=== PATIENT | female | born 1990 | race Two or more races ===

== ENCOUNTER 2017-05-10 04:41 | Emergency (ER) | payer SELFPAY ==
[2017-05-10 04:48] VITALS: TEMP 97.7; O2SAT 98
[2017-05-10 05:27] LABS: % IMMATURE GRANULYOCYTES 0.3 % (0.0-1.1); ABSOLUTE IMMATURE GRANULOCYTES 0.02 10^3/uL (0.00-0.10); ADD DIFF? NO; ADD MORPH? NO; ADD SCAN? NO; ATYPICAL LYMPHOCYTE FLAG 10 (0-99); FRAGMENT RBC FLAG 0 (0-99); HEMATOCRIT 40.9 % (38.0-47.0); HEMOGLOBIN 13.7 g/dL (12.6-16.3); LEFT SHIFT FLG 0 (0-99); LIPEMIA HEMOLYSIS FLAG 80 (0-99); MEAN CELL HEMOGLOBIN 30.9 pg (27.9-34.1); MEAN CELL HEMOGLOBIN CONCENTR. 33.5 g/dL (32.4-36.7); MEAN CELL VOLUME 92.1 fL (81.5-99.8); MEAN PLATELET VOLUME 11.6 fL (8.7-11.7); PLATELET CLUMPS FLAG 0 (0-99); PLATELET COUNT 193 10^3/uL (150-400); RED BLOOD CELL COUNT 4.44 10^6/uL (4.18-5.33); RED CELL DISTRIBUTION WIDTH 13.4 % (11.5-15.2)
[2017-05-10 05:38] LABS: ANION GAP 11 mEq/L (8-16); CALCIUM 9.1 mg/dL (8.5-10.4); CARBON DIOXIDE 22 mEq/l (22-31); CHLORIDE 105 mEq/L (97-110); CREATININE 0.9 mg/dL (0.6-1.0); GLOMERULAR FILTRATION RATE > 60; GLUCOSE 82 mg/dL (70-100); POTASSIUM 3.7 mEq/L (3.5-5.2); SODIUM 138 mEq/L (134-144)
[2017-05-10 05:50] LABS: TROPONIN I < 0.012 ng/mL (0.000-0.034)
[2017-05-10] MEDS ORDERED: MAG HYDROX/AL HYDROX/SIMETH 30 ML UDCUP PO ONE (06:21)
--- NOTE | 2017-05-10 06:22 | EDPHY ---
H & P Stated Complaint: chest pain since 1030 pm Time Seen by Provider: 05/10/17 05:50 HPI/ROS: HPI The patient presents with chest pain which began at 10:30 p.m. tonight while she was trying to fall asleep. The pain started slowly and is at her mid chest and also on the right side, it is now mostly improved. It is sharp in nature. She has no prior history of similar. She does not have any shortness of breath , nausea, vomiting, dizziness or diaphoresis. She did eat at 2 tacos before going to bed.. REVIEW OF SYSTEMS Constitutional: No fever, no chills. Eyes: No discharge. ENT: No sore throat. Cardiovascular: No chest pain, no palpitations. Respiratory: No cough, no shortness of breath. Gastrointestinal: No abdominal pain, no vomiting. Genitourinary: No hematuria. Musculoskeletal: No back pain. Skin: No rashes. Neurological: No headache. PMHx: Healthy Soc Hx: Lives at home with her kids, no smoking FHx: Mother with valvular heart disease PHYSICAL General Appearance: Alert, no distress Eyes: Pupils equal and round no pallor or injection ENT, Mouth: Mucous membranes moist Respiratory: There are no retractions, lungs are clear to auscultation Cardiovascular: Regular rate and rhythm Gastrointestinal: Abdomen is soft and non-tender, no masses, bowel sounds normal Neurological: A&O, moves all extremities Skin: Warm and dry, no rashes Musculoskeletal: Neck is supple non tender Extremities: symmetrical, full range of motion Psychiatric: Patient is oriented X 3, there is no agitation Source: Patient Exam Limitations: No limitations - Personal History LMP (Females 10-55): 15-21 Days Ago Current Tetanus/Diphtheria Vaccine: Yes Current Tetanus Diphtheria and Acellular Pertussis (TDAP): Yes - Medical/Surgical History Hx Asthma: No Hx Chronic Respiratory Disease: No Hx Diabetes: No Hx Cardiac Disease: No Hx Renal Disease: No Hx Cirrhosis: No Hx Alcoholism: No Hx HIV/AIDS: No Hx Splenectomy or Spleen Trauma: No Other PMH: pmh: denies. psh: denies - Social History Smoking Status: Never smoked Constitutional: Initial Vital Signs Temperature (C) 36.5 C 05/10/17 04:44 Heart Rate 70 05/10/17 04:44 Respiratory Rate 19 05/10/17 04:44 Blood Pressure 106/70 05/10/17 04:44 O2 Sat (%) 98 05/10/17 04:44 O2 Delivery Mode Room Air Allergies/Adverse Reactions: No Known Allergies Allergy (Unverified 01/03/15 22:21) Home Medications: Medication Instructions Recorded Famotidine [Pepcid 20 MG (*)] 20 mg PO BID #30 tab 05/10/17 Medical Decision Making - Diagnostics EKG Interpretation: EKG: Complete interpretation has been separately recorded in the [facility] archive. Summary impression: Normal sinus rhythm Imaging Results: Chest x-ray two view shows no cardiomegaly, no effusion, no pneumothorax, interpreted by me, radiology interpretation is pending. Imaging: I viewed and interpreted images myself Differential Diagnosis: This is a 26-year-old healthy female who presents with several hours of diffuse to chest pain which occurred while lying in bed.. On exam, she is well- appearing with no chest wall tenderness and normal vital signs. Differential diagnosis includes gastritis, GERD, anxiety, costochondritis, less likely ACS given young age and no risk factors, less likely PE given perc negative. In the emergency department, basic labs were checked and were all unremarkable. EKG and chest x-ray were also normal. Patient was given Maalox with improvement in her symptoms. I will discharge her with a course of famotidine and follow up at [facility] where her primary care doctor is. - Data Points Laboratory Results: Laboratory Results 05/10/17 05:18 05/10/17 05:18 Medications Given: Discontinued Medications Al Hydroxide/Mg Hydroxide (Maalox Susp) 30 ml PO EDNOW ONE Stop: 05/10/17 06:22 Last Admin: 05/10/17 06:50 Dose: 30 ml Departure - Departure Disposition: Home, Routine, Self-Care Clinical Impression: Chest pain Condition: Good Instructions: Chest Pain (ED), Diet for Stomach Ulcers and Gastritis (ED), Gastroesophageal Reflux Disease (ED) Referrals: [facility] [Other] - As per Instructions Prescriptions: Famotidine [Pepcid 20 MG (*)] 20 mg PO BID #30 tab
[2017-05-10 06:59] VITALS: BP 106/69; PULSE 67; RESP 16
--- NOTE | 2017-05-11 11:08 | CPEKG ---
Heart Rate: 73 RR Interval: 822 P-R Interval: 184 QRSD Interval: 76 QT Interval: 364 QTC Interval: 401 P Chuckey: 53 QRS Chuckey: 18 T Wave Chuckey: 32 EKG Severity - NORMAL ECG - EKG Impression: SINUS RHYTHM Electronically Signed By: Nanci Carter 12-May-2017 07:24:02
== END 2017-05-10 07:03 | disposition home or self-care (01) ==
DX: R07.9 Chest pain, unspecified (principal)

== ENCOUNTER 2018-06-26 23:24 | Emergency (ER) | payer SELFPAY ==
--- NOTE | 2018-06-26 23:56 | EDPHY ---
H & P Stated Complaint: CP Time Seen by Provider: 06/26/18 23:49 HPI/ROS: CHIEF COMPLAINT: Chest pain HISTORY OF PRESENT ILLNESS: The patient is a 27-year-old female who complains of intermittent mid chest pain for the last week. No weakness or numbness. No shortness of breath. She describes it as sharp. It does not hurt worse with movement or palpation. Does not hurt worse with deep inspiration. No travel recently. She does not smoke or take control pills. She denies risk of . She has had symptoms like this before and has been evaluated with negative workup. She thought initially that maybe it was something she ate and she tried to drink water but this did not help. She denies epigastric or abdominal pain. The pain does radiate to her back. No lightheadedness or dizziness. No tearing or ripping sensation. Severity: Moderate Modifying factors: None REVIEW OF SYSTEMS: Constitutional: denies: chills, fever, recent illness, recent injury EENTM: denies: blurred vision, double vision, nose congestion Respiratory: denies: cough, shortness of breath Cardiac: See HPI Gastrointestinal/Abdominal: denies: abdominal pain, diarrhea, nausea, vomiting, blood streaked stools Genitourinary: denies: dysuria, frequency, hematuria, pain Musculoskeletal: denies: joint pain, muscle pain Skin: denies: lesions, rash, jaundice, bruising Neurological: denies: headache, numbness, paresthesia, tingling, dizziness, weakness Hematologic/Lymphatic: denies: blood clots, easy bleeding, easy bruising Immunologic/allergic: denies: HIV/AIDS, transplant 10 systems reviewed and negative except as noted EXAM: GENERAL: Well-appearing, obese and in no acute distress. HEAD: Atraumatic, normocephalic. EYES: Pupils equal round and reactive to light, extraocular movements intact, sclera anicteric, conjunctiva are normal. ENT: TMs normal, nares patent, oropharynx clear without exudates. Moist mucous membranes. NECK: Normal range of motion, supple without lymphadenopathy or JVD. LUNGS: Breath sounds clear to auscultation bilaterally and equal. No wheezes rales or rhonchi. HEART: Regular rate and rhythm without murmurs, rubs or gallops. ABDOMEN: Soft, nontender, normoactive bowel sounds. No guarding, no rebound. No masses appreciated. BACK: No CVA tenderness, no spinal tenderness, step-offs or deformities EXTREMITIES: Normal range of motion, no pitting or edema. No clubbing or cyanosis. NEUROLOGICAL: Cranial nerves II through XII grossly intact. Normal speech, normal gait. 5/5 strength, normal movement in all extremities, normal sensation , normal reflexes PSYCH: Normal mood, normal affect. SKIN: Warm, dry, normal turgor, no visible rashes or lesions. Source: Patient, Old records Exam Limitations: No limitations - Personal History LMP (Females 10-55): 15-21 Days Ago Current Tetanus/Diphtheria Vaccine: Unsure Current Tetanus Diphtheria and Acellular Pertussis (TDAP): Unsure - Medical/Surgical History Hx Asthma: No Hx Chronic Respiratory Disease: No Hx Diabetes: No Hx Cardiac Disease: No Hx Renal Disease: No Hx Cirrhosis: No Hx Alcoholism: No Hx HIV/AIDS: No Hx Splenectomy or Spleen Trauma: No Other PMH: pmh: denies. psh: denies - Family History Significant Family History: No pertinent family hx - Social History Smoking Status: Never smoked Alcohol Use: Sober Drug Use: None Constitutional: Initial Vital Signs Temperature (C) 36.5 C 06/26/18 23:26 Heart Rate 80 06/26/18 23:26 Respiratory Rate 16 06/26/18 23:26 Blood Pressure 120/76 06/26/18 23:26 O2 Sat (%) 98 06/26/18 23:26 O2 Delivery Mode Room Air Allergies/Adverse Reactions: No Known Allergies Allergy (Unverified 01/03/15 22:21) Home Medications: Medication Instructions Recorded Famotidine [Pepcid 20 MG (*)] 20 mg PO BID #30 tab 05/10/17 Famotidine [Pepcid] 40 mg PO HS #30 tablet 06/27/18 Medical Decision Making - Diagnostics EKG Interpretation: An EKG obtained and was read and documented in trace view. Please see trace view for full reading and report. Sinus rhythm, no acute ischemic changes Imaging: I viewed and interpreted images myself (No acute disease) ED Course/Re-evaluation: 1:00 a.m. the patient is doing well. She is asymptomatic. We discussed her test results which are reassuring. She declines further workup or testing. I will start her on Pepcid and advised her to follow up with GI as well as Cardiology. She understands and agrees with this plan. We also discussed indications for returning to the emergency department. Her heart score 0. 1:15 a.m. Patient is asking for Pepcid. She states that the GI cocktail helped and she thinks that it is heartburn that is affecting her. Differential Diagnosis: Partial list of the Differential diagnosis considered include but were not limited to; esophageal spasm, acute coronary disease, GERD, peptic ulcer disease, anxiety, musculoskeletal pain and although unlikely based on the history and physical exam, I also considered arrhythmia, pneumothorax, PE. I discussed these differential diagnoses and the plan with the patient as well as the usual and expected course. The patient understands that the diagnosis is provisional and that in medicine we are not always correct and that further workup is often warranted. Usual and customary warnings were given. All of the patient's questions were answered. The patient was instructed to return to the emergency department should the symptoms at all worsen or return, otherwise to followup with the physician as we discussed. - Data Points Laboratory Results: Laboratory Results 06/27/18 00:04 06/27/18 00:04 06/27/18 06/27/18 06/27/18 00:11 00:04 00:04 WBC RBC Hgb Hct MCV MCH MCHC RDW Plt Count MPV Neut % (Auto) Lymph % (Auto) [place] % (Auto) Eos % (Auto) Baso % (Auto) Nucleat RBC Rel Count Absolute Neuts (auto) Absolute Lymphs (auto) Absolute Monos (auto) Absolute Eos (auto) Absolute Basos (auto) Absolute Nucleated RBC Immature Gran % Immature Gran # D-Dimer Sodium 135 mEq/L mEq/L (135-145) Potassium 3.9 mEq/L mEq/L (3.3-5.0) Chloride 106 mEq/L mEq/L (97-110) Carbon Dioxide 19 mEq/l L mEq/l (22-31) Anion Gap 10 mEq/L mEq/L (6-14) BUN 15 mg/dL mg/dL (7-23) Creatinine 0.6 mg/dL mg/dL (0.6-1.0) Estimated GFR > 60 Glucose 87 mg/dL mg/dL (70-100) Calcium 8.7 mg/dL mg/dL (8.5-10.4) Total Bilirubin 0.4 mg/dL mg/dL (0.1-1.4) Conjugated Bilirubin 0.2 mg/dL mg/dL (0.0-0.5) Unconjugated Bilirubin 0.2 mg/dL mg/dL (0.0-1.1) AST 25 IU/L IU/L (14-46) ALT 34 IU/L IU/L (9-52) Alkaline Phosphatase 90 IU/L IU/L (38-126) POC Troponin I 0.00 ng/mL ng/mL (0.00-0.08) Total Protein 6.9 g/dL g/dL (6.3-8.2) Albumin 3.8 g/dL g/dL (3.5-5.0) Lipase 172 IU/L IU/L (23-300) Beta HCG, Qual NEGATIVE 06/27/18 06/27/18 00:04 00:04 WBC 5.66 10^3/uL 10^3/uL (3.80-9.50) RBC 4.43 10^6/uL 10^6/uL (4.18-5.33) Hgb 13.5 g/dL g/dL (12.6-16.3) Hct 42.9 % % (38.0-47.0) MCV 96.8 fL fL (81.5-99.8) MCH 30.5 pg pg (27.9-34.1) MCHC 31.5 g/dL L g/dL (32.4-36.7) RDW 13.2 % % (11.5-15.2) Plt Count 177 10^3/uL 10^3/uL (150-400) MPV 11.4 fL fL (8.7-11.7) Neut % (Auto) 52.5 % % (39.3-74.2) Lymph % (Auto) 33.9 % % (15.0-45.0) [place] % (Auto) 9.7 % % (4.5-13.0) Eos % (Auto) 3.0 % % (0.6-7.6) Baso % (Auto) 0.7 % % (0.3-1.7) Nucleat RBC Rel Count 0.0 % % (0.0-0.2) Absolute Neuts (auto) 2.97 10^3/uL 10^3/uL (1.70-6.50) Absolute Lymphs (auto) 1.92 10^3/uL 10^3/uL (1.00-3.00) Absolute Monos (auto) 0.55 10^3/uL 10^3/uL (0.30-0.80) Absolute Eos (auto) 0.17 10^3/uL 10^3/uL (0.03-0.40) Absolute Basos (auto) 0.04 10^3/uL 10^3/uL (0.02-0.10) Absolute Nucleated RBC 0.00 10^3/uL 10^3/uL (0-0.01) Immature Gran % 0.2 % % (0.0-1.1) Immature Gran # 0.01 10^3/uL 10^3/uL (0.00-0.10) D-Dimer 0.30 ug/mLFEU ug/mLFEU (0.00-0.50) Sodium Potassium Chloride Carbon Dioxide Anion Gap BUN Creatinine Estimated GFR Glucose Calcium Total Bilirubin Conjugated Bilirubin Unconjugated Bilirubin AST ALT Alkaline Phosphatase POC Troponin I Total Protein Albumin Lipase Beta HCG, Qual Medications Given: Discontinued Medications Al Hydroxide/Mg Hydroxide (Maalox Susp) 30 ml PO ONCE ONE Stop: 06/27/18 00:00 Last Admin: 06/27/18 00:05 Dose: 30 ml Aspirin (Aspirin) 324 mg PO EDNOW ONE Stop: 06/26/18 23:55 Last Admin: 06/27/18 00:05 Dose: 324 mg Famotidine (Pepcid) 40 mg PO EDNOW ONE Stop: 06/27/18 01:34 Last Admin: 06/27/18 01:37 Dose: 40 mg Hyoscyamine Sulfate (Levsin, Hyomax-Sl) 0.25 mg PO ONCE ONE Stop: 06/27/18 00:00 Last Admin: 06/27/18 00:05 Dose: 0.25 mg Lidocaine (Lidocaine 2% Viscous) 15 ml PO ONCE ONE Stop: 06/27/18 00:00 Last Admin: 06/27/18 00:05 Dose: 15 ml Point of Care Test Results: Chemistry 06/27/18 00:11 POC Troponin I 0.00 ng/mL ng/mL (0.00-0.08) Departure - Departure Disposition: Home, Routine, Self-Care Clinical Impression: Chest pain Qualifiers: Chest pain type: unspecified Qualified Code(s): R07.9 - Chest pain, unspecified Condition: Fair Instructions: Chest Pain (ED) Referrals: Patient,NotPresent [Unknown] - As per Instructions Mitch Leyva MD [Medical Doctor] - 5-7 days, call for appt. Sally Roberts MD [Medical Doctor] - 5-7 days, call for appt. Prescriptions: Famotidine [Pepcid] 40 mg PO HS #30 tablet
--- NOTE | 2018-06-27 | CPEKG ---
Test Reason : OPEN Blood Pressure : / mmHG Vent. Rate : 077 BPM Atrial Rate : 077 BPM P-R Int : 179 ms QRS Dur : 083 ms QT Int : 352 ms P-R-T Axes : 028 011 026 degrees QTc Int : 399 ms Sinus rhythm Confirmed by Baljeet Zhao ([id number]) on 06/26/2018 11:59:45 PM Referred By: Confirmed By:Baljeet Zhao
[2018-06-27] MEDS: HYOSCYAMINE SULFATE 0.125 MG TAB PO ONE (00:05)
[2018-06-27] MEDS: MAG HYDROX/AL HYDROX/SIMETH 30 ML UDCUP PO ONE (00:05)
[2018-06-27] MEDS: LIDOCAINE 2% VISCOUS 15 ML UDCUP PO ONE (00:05)
[2018-06-27] MEDS: ASPIRIN 81 MG CHEWABLE TAB PO ONE (00:05)
[2018-06-27 00:15] LABS: PLATELET COUNT 177 10^3/uL (150-400)
[2018-06-27 01:11] VITALS: BP 107/67
[2018-06-27] MEDS: FAMOTIDINE 20 MG TAB PO ONE (01:37)
== END 2018-06-27 01:39 | disposition home or self-care (01) ==
DX: R07.9 Chest pain, unspecified (principal)
CPT/HCPCS: 84484-PO

== ENCOUNTER 2019-03-08 07:15 | Emergency (ER) | payer SELFPAY ==
[2019-03-08] MEDS ORDERED: NS 1,000 ML IV ONE (07:28)
[2019-03-08] MEDS ORDERED: KETOROLAC 30 MG/1 ML SDV IVP ONE (07:34)
--- NOTE | 2019-03-08 07:35 | EDPHY ---
HPI/HX/ROS/PE/MDM Narrative: CHIEF COMPLAINT: Vaginal bleeding HPI: The patient is a 28-year-old female with no significant past medical history. She complains of approximately 3 hr of very heavy vaginal bleeding and diffuse pelvic cramping. She states her last menstrual period was a approximately January 03 so she did miss a menstrual cycle. [facility] and reportedly had negative test there. She denies recent injury or any possibility of vaginal trauma. No syncope. No fever. REVIEW OF SYSTEMS: Aside from elements discussed in the HPI, a comprehensive 10-point review of systems was reviewed and is negative. PMH: None significant. SOCIAL HISTORY: Denies alcohol or drug abuse. PHYSICAL EXAM: General:Patient is alert, in no acute distress. ENT:Eyes are normal to inspection. ENT inspection normal. Neck: Normal inspection. Full range of motion. Respiratory:No respiratory distress. Breath sounds normal bilaterally. Cardiovascular: Regular rate and rhythm. Strong peripheral pulses. Normal cap refill. Abdomen:The abdomen is nontender to palpation. There are no peritoneal signs. There are normal bowel sounds. Back: Normal to inspection. No tenderness to palpation. Skin: Normal color. No rash. Warm and dry. Extremities: Normal appearance. Full range of motion. Neuro: Oriented x3. Normal motor function. Normal sensory function. MDM: This is a young healthy female with vaginal bleeding. She is well-appearing on exam, her vital signs are normal, her abdomen is nontender and there are no signs of hemorrhagic shock. Her CBC shows a normal hematocrit. We performed an ultrasound of her pelvis which is negative for any acute abnormality or retained products of conception. Given the patient's history of missing a menstrual cycle, I suspect this current episode represents her normal menstrual period which is either heavier because of the missed cycle or potentially the patient may have had spontaneous of a very early several weeks ago and this would represent a 1st normal period since then. In either case, I think the patient is safe for discharge home and follow up with her scaffold setter. - Data Points Imaging Results: Imaging Impressions Pelvic/Renal Ultrasound 03/08/19 08:32 Impression: 1. No mass or abnormality to suggest retained products of conception. 2. See above report for additional findings. Results called and discussed with Tawanda Stubbs MD on 03/08/2019 at 9:54. Imaging: Discussed imaging studies w/ ham boner Radiologist Laboratory Results: Laboratory Results 03/08/19 07:25 03/08/19 07:25 03/08/19 03/08/19 03/08/19 07:25 07:25 07:25 WBC 8.17 10^3/uL 10^3/uL (3.80-9.50) RBC 4.77 10^6/uL 10^6/uL (4.18-5.33) Hgb 14.2 g/dL g/dL (12.6-16.3) Hct 43.0 % % (38.0-47.0) MCV 90.1 fL fL (81.5-99.8) MCH 29.8 pg pg (27.9-34.1) MCHC 33.0 g/dL g/dL (32.4-36.7) RDW 14.4 % % (11.5-15.2) Plt Count 239 10^3/uL 10^3/uL (150-400) MPV 11.4 fL fL (8.7-11.7) Neut % (Auto) 71.3 % % (39.3-74.2) Lymph % (Auto) 18.6 % % (15.0-45.0) [place] % (Auto) 8.1 % % (4.5-13.0) Eos % (Auto) 1.3 % % (0.6-7.6) Baso % (Auto) 0.5 % % (0.3-1.7) Nucleat RBC Rel Count 0.0 % % (0.0-0.2) Absolute Neuts (auto) 5.82 10^3/uL 10^3/uL (1.70-6.50) Absolute Lymphs (auto) 1.52 10^3/uL 10^3/uL (1.00-3.00) Absolute Monos (auto) 0.66 10^3/uL 10^3/uL (0.30-0.80) Absolute Eos (auto) 0.11 10^3/uL 10^3/uL (0.03-0.40) Absolute Basos (auto) 0.04 10^3/uL 10^3/uL (0.02-0.10) Absolute Nucleated RBC 0.00 10^3/uL 10^3/uL (0-0.01) Immature Gran % 0.2 % % (0.0-1.1) Immature Gran # 0.02 10^3/uL 10^3/uL (0.00-0.10) Sodium 138 mEq/L mEq/L (135-145) Potassium 4.1 mEq/L mEq/L (3.5-5.2) Chloride 107 mEq/L mEq/L (97-110) Carbon Dioxide 20 mEq/l L mEq/l (22-31) Anion Gap 11 mEq/L mEq/L (6-14) BUN 15 mg/dL mg/dL (7-23) Creatinine 0.8 mg/dL mg/dL (0.6-1.0) Estimated GFR > 60 Glucose 101 mg/dL H mg/dL (70-100) Calcium 8.9 mg/dL mg/dL (8.5-10.4) Beta HCG, Qual NEGATIVE Medications Given: Discontinued Medications Sodium Chloride (Ns) 1,000 mls @ 0 mls/hr IV EDNOW ONE; Wide Open PRN Reason: Protocol Stop: 03/08/19 07:29 Last Admin: 03/08/19 07:49 Dose: 1,000 mls Ketorolac Tromethamine (Toradol) 15 mg IVP EDNOW ONE Stop: 03/08/19 07:35 Last Admin: 03/08/19 07:55 Dose: 15 mg General Time Seen by Provider: 03/08/19 07:19 Initial Vital Signs: Initial Vital Signs Temperature (C) 36.6 C 03/08/19 07:19 Heart Rate 84 03/08/19 07:19 Respiratory Rate 17 03/08/19 07:19 Blood Pressure 93/75 L 03/08/19 07:19 O2 Sat (%) 98 03/08/19 07:19 O2 Delivery Mode Room Air Allergies/Adverse Reactions: No Known Allergies Allergy (Verified 03/08/19 07:18) Home Medications: Medication Instructions Recorded NK [No Known Home Meds] 03/08/19 Departure - Departure Disposition: Home, Routine, Self-Care Clinical Impression: Dysfunctional uterine bleeding Condition: Good Instructions: Dysfunctional Uterine Bleeding (ED) Additional Instructions: Follow-up with your scaffold setter within 72 hr. Return to the emergency department for worsening bleeding, abdominal pain, passing out or other concerns. Referrals: [facility],. [Primary Care Provider] - As per Instructions Virginia Mejia DO [Doctor of Osteopathy] - As per Instructions
[2019-03-08 08:01] LABS: PLATELET COUNT 239 10^3/uL (150-400)
[2019-03-08 10:29] VITALS: BP 98/62
== END 2019-03-08 10:30 | disposition home or self-care (01) ==
DX: N93.8 Other specified abnormal uterine and vaginal bleeding (principal)
CPT/HCPCS: 96374; J1885